=== PATIENT | male | born 1985 | race Two or more races ===

== ENCOUNTER 2023-06-22 00:06 | Emergency (ER) | payer MEDICAID ==
[~2023-06-22] VITALS: Ht 165.1 cm; Wt 80.7 kg
[2023-06-22 00:40] VITALS: TEMP 98.4
[2023-06-22] MEDS ORDERED: TDAP [DIPH/PERTUSSIS/TET] 0.5 ML VIAL IM ONE (01:06)
[2023-06-22] MEDS: TDAP [DIPH/PERTUSSIS/TET] 0.5 ML VIAL IM ONE (01:12)
[2023-06-22] MEDS ORDERED: IBUPROFEN 600 MG TABLET ONE (01:56)
[2023-06-22] MEDS: IBUPROFEN 600 MG TABLET PO ONE (01:58)
[2023-06-22 02:06] VITALS: BP 147/89; O2SAT 99
== END 2023-06-22 02:07 | disposition home or self-care (01) ==
LOC: ER 00:12
DX: S00.03XA Contusion of scalp, initial encounter (principal); S09.90XA Unspecified injury of head, initial encounter; Z60.2 Problems related to living alone; Y04.2XXA Assault by strike against or bumped into by another person, initial encounter; Y93.89 Activity, other specified; Y92.89 Other specified places as the place of occurrence of the external cause; Y99.8 Other external cause status
CPT/HCPCS: 70450-TC; 90715